=== PATIENT | male | born 1995 | race African-American/Black ===

== ENCOUNTER 2019-02-28 20:30 | Emergency (ER) | payer MEDICAID ==
[~2019-02-28] VITALS: Ht 165.1 cm; Wt 60.0 kg
[2019-02-28 22:00] LABS: URINE BILIRUBIN - DIPSTICK NEGATIVE (NEGATIVE); URINE BLOOD DIPSTICK MODERATE (NEGATIVE); URINE COLOR YELLOW; URINE GLUCOSE - DIPSTICK NEGATIVE (NEGATIVE); URINE KETONE NEGATIVE (NEGATIVE); URINE NITRITE - DIPSTICK NEGATIVE (Negative); URINE PH 5.5 (4.5-8.0); URINE PROTEIN - DIPSTICK TRACE mg/dL (NEG-TRACE); URINE SPECIFIC GRAVITY >=1.030
[2019-02-28 22:03] LABS: URINE LEUK ESTERASE SMALL (NEGATIVE)
[2019-02-28] MEDS ORDERED: LORTAB 1010 MG PO (22:47)
[2019-02-28] MEDS ORDERED: CIPROFLOXACN500 MG PO (22:47)
[2019-02-28 22:49] LABS: URINE BACTERIA RARE hpf; URINE SQUAMOUS EPITHELIAL CELL FEW EPI/hpf (0-FEW)
[2019-02-28 23:21] VITALS: BP 110/71
== END 2019-02-28 23:21 | disposition home or self-care (01) ==
LOC: ED 20:30
PROVIDERS: Emergency Medicine
DX: N45.1 Epididymitis (principal); N39.0 Urinary tract infection, site not specified